=== PATIENT | female | born 1945 | race Caucasian/White ===

== ENCOUNTER → 2019-01-29 | Outpatient (CLI) | payer MEDICARE, OTHER | LOC: DL.CLIN 08:00 | DX: I10 Essential (primary) hypertension (principal) | CPT/HCPCS: 99213 ==

== ENCOUNTER 2020-12-28 18:56 | Emergency (ER) | payer MEDICARE, OTHER ==
--- NOTE | 2020-12-28 19:05 | EDM.PDOC ---
ED HPI GENERAL MEDICAL PROBLEM - General Chief Complaint: Chest Pain Stated Complaint: AMBULANCE Time Seen by Provider: 12/28/20 19:05 Source of Information: Reports: Patient, RN, RN Notes Reviewed History Limitations: Reports: No Limitations - History of Present Illness INITIAL COMMENTS - FREE TEXT/NARRATIVE: Patient presents to the ED via EMS with complaints of chest discomfort and pressure. The patient reports the symptoms began abruptly about 45 minutes ago following her evening meal. She denies experiencing discomfort similar to this in the past and does not have a history of heart burn. She additionally denies history of significant cardiac events; she takes Metoprolol ER 25mg daily, Lisinopril 10mg daily, and Furosemide 20mg daily for HTN as well as Simvastatin 20mg daily for hyperlipidemia. She denies recent illness, fever, shaking chills, palpitations, dyspepsia, abdominal pain, nausea, vomiting, and diarrhea. She does to mild shortness of breath. She denies tobacco, alcohol, or recreational use. The patient states she has not taken any medications for these symptoms, but does attest to improvement in chest pressure following the administration of Nitroglycerin en route via EMS. Mid-Sternal Chest Pain Score (Numeric/FACES): 2 - Related Data Allergies Allergy/AdvReac Type Severity Reaction Status Date / Time No Known Allergies Allergy Verified 12/27/18 21:17 Home Meds: Home Meds Fish Oil/[place]-3 Fatty Acids [Fish Oil] 2,400 each PO DAILY 12/23/14 [History] Lutein/Minerals/Vit A,C & E [Ocuvite] 1 tab PO DAILY 12/23/14 [History] Furosemide [Lasix] 1 tab PO DAILY 12/27/18 [History] Lisinopril 15 mg PO DAILY 12/27/18 [History] Simvastatin 20 mg PO DAILY 12/27/18 [History] Aspirin [Adult Low Dose Aspirin EC] 81 mg PO DAILY 05/19/20 [History] Calcium Carbonate/Vitamin D3 [Calcium 500-Vit D3 125 Caplet] 2 tab PO DAILY 05/19/20 [History] Escitalopram Oxalate 10 mg PO DAILY 05/19/20 [History] Past Medical History - Infectious Disease History Infectious Disease History: Reports: Chicken Pox, Measles - Past Surgical History HEENT Surgical History: Reports: Tonsillectomy Female Surgical History: Reports: Section, D&C Social & Family History - Family History Cardiac: Reports: [place] Endocrine/Metabolic: Reports: Diabetes, type II - Caffeine Use Caffeine Use: Reports: Soda ED ROS GENERAL - Review of Systems Review Of Systems: Comprehensive ROS is negative, except as noted in HPI. ED EXAM, GENERAL - Physical Exam Exam: See Below Exam Limited By: No Limitations General Appearance: Alert, No Apparent Distress Eye Exam: Bilateral Eye: EOMI, Normal Inspection, PERRL Throat/Mouth: Normal Inspection, Normal Voice, No Airway Compromise Head: Atraumatic, Normocephalic Neck: Normal Inspection, Supple, Non-Tender, Full Range of Motion Respiratory/Chest: No Respiratory Distress, Lungs Clear, Normal Breath Sounds, No Accessory Muscle Use, Chest Non-Tender Cardiovascular: Normal Peripheral Pulses, Regular Rate, Rhythm, No Gallop, No JVD, No Murmur, No Rub Peripheral Pulses: 2+: Radial (L), Radial (R), Dorsalis Pedis (L), Dorsalis Pedis (R) GI/Abdominal: Normal Bowel Sounds, Soft, Non-Tender, No Distention, No Mass, Pelvis Stable (Female) Exam: Deferred Rectal (Female) Exam: Deferred Back Exam: Normal Inspection, Full Range of Motion Extremities: Normal Range of Motion, Non-Tender, Normal Capillary Refill, Pedal Edema (+2 pitting, bilaterally) Neurological: Alert, Oriented, CN II-XII Intact, Normal Cognition, No Motor/Sensory Deficits Psychiatric: Normal Affect, Normal Mood Skin Exam: Warm, Dry, Intact, Normal Color, No Rash. No: Ecchymosis, Erythema, Mottled, Pallor, Petechiae #1 Interpretation EKG Date: 12/28/20 Time: 19:08 Rhythm: NSR Rate (Beats/Min): 78 [place]: LAD-Left [place] Deviation P-Wave: Present QRS: Normal ST-T: Normal QT: Normal WA/PQ Interval: .178 Comparison: No Change EKG Interpretation Comments: NSR; LAD; Q-wave to III, aVF, V4, V5, and V6 Course - Vital Signs Last Recorded V/S: Last Vital Signs Temp 96.1 F L 12/28/20 19:02 Pulse 88 12/28/20 19:02 Resp 17 12/28/20 19:02 BP 144/67 H 12/28/20 19:02 Pulse Ox 95 12/28/20 19:02 - Orders/Labs/Meds Orders: Active Orders 24 hr Category Date Time Status CULTURE URINE [RM] Stat Lab 12/28/20 21:58 Received Labs: Laboratory Tests 12/28/20 12/28/20 12/28/20 Range/Units 19:13 19:13 19:13 WBC 5.5 (5.0-10.0) 10^3/uL RBC 4.00 L (4.2-5.4) 10^6/uL Hgb 12.4 (12.0-16.0) g/dL Hct 36.6 L (37.0-47.0) % MCV 91.5 (80-100) fL MCH 31.0 (27.0-34.0) pg MCHC 33.9 (33.0-35.0) g/dL Plt Count 233 (150-450) 10^3/uL Neut % (Auto) 66.7 (42.2-75.2) % Lymph % (Auto) 18.3 L (20.5-50.1) % [place] % (Auto) 11.2 H (2-8) % Eos % (Auto) 3.6 H (1.0-3.0) % Baso % (Auto) 0.2 (0.0-1.0) % Sodium 142 (136-145) mmol/L Potassium 3.1 L (3.5-5.1) mmol/L Chloride 103 (98-107) mmol/L Carbon Dioxide 29 (21-32) mmol/L Anion Gap 13.1 H (7-13) mEq/L BUN 13 (7-18) mg/dL Creatinine 1.08 H (0.55-1.02) mg/dL Est Cr Clr Drug Dosing 37.67 mL/min Estimated GFR (MDRD) 49 BUN/Creatinine Ratio 12.0 (No establ ref range) Glucose 145 H (74-99) mg/dL Lactic Acid 1.3 (0.4-2.0) mmol/L Calcium 8.9 (8.5-10.1) mg/dL Magnesium 1.8 (1.8-2.4) mg/dL Total Bilirubin 0.4 (0.2-1.0) mg/dL AST 41 H (15-37) U/L ALT 29 (14-59) U/L Alkaline Phosphatase 58 (46-116) U/L Troponin I < 0.017 (0.000-0.056) ng/mL C-Reactive Protein 0.4 (0.0-0.9) mg/dL B-Natriuretic Peptide 355 H (0-100) pg/ml Total Protein 7.0 (6.4-8.2) g/dL Albumin 3.4 (3.4-5.0) g/dL Globulin 3.6 Albumin/Globulin Ratio 0.9 Amylase 26 (25-115) U/L Lipase 102 (73-393) U/L Urine Color (YELLOW) Urine Appearance (CLEAR) Urine pH (5.0-9.0) Ur Specific Reading (1.005-1.030) Urine Protein (NEGATIVE) Urine Glucose (UA) (NEGATIVE) Urine Ketones (NEGATIVE) Urine Occult Blood (NEGATIVE) Urine Nitrite (NEGATIVE) Urine Bilirubin (NEGATIVE) Urine Urobilinogen (0.2-1.0) mg/dL Ur Leukocyte Esterase (NEGATIVE) Urine RBC /HPF Urine WBC (0-5/HPF) /HPF Ur Epithelial Cells (NOT SEEN) /HPF Amorphous Sediment (NOT SEEN) /HPF Urine Bacteria (0-FEW/HPF) /HPF Urine Mucus (NOT SEEN) /LPF 12/28/20 12/28/20 Range/Units 21:58 23:02 WBC (5.0-10.0) 10^3/uL RBC (4.2-5.4) 10^6/uL Hgb (12.0-16.0) g/dL Hct (37.0-47.0) % MCV (80-100) fL MCH (27.0-34.0) pg MCHC (33.0-35.0) g/dL Plt Count (150-450) 10^3/uL Neut % (Auto) (42.2-75.2) % Lymph % (Auto) (20.5-50.1) % [place] % (Auto) (2-8) % Eos % (Auto) (1.0-3.0) % Baso % (Auto) (0.0-1.0) % Sodium (136-145) mmol/L Potassium (3.5-5.1) mmol/L Chloride (98-107) mmol/L Carbon Dioxide (21-32) mmol/L Anion Gap (7-13) mEq/L BUN (7-18) mg/dL Creatinine (0.55-1.02) mg/dL Est Cr Clr Drug Dosing mL/min Estimated GFR (MDRD) BUN/Creatinine Ratio (No establ ref range) Glucose (74-99) mg/dL Lactic Acid (0.4-2.0) mmol/L Calcium (8.5-10.1) mg/dL Magnesium (1.8-2.4) mg/dL Total Bilirubin (0.2-1.0) mg/dL AST (15-37) U/L ALT (14-59) U/L Alkaline Phosphatase (46-116) U/L Troponin I < 0.017 (0.000-0.056) ng/mL C-Reactive Protein (0.0-0.9) mg/dL B-Natriuretic Peptide (0-100) pg/ml Total Protein (6.4-8.2) g/dL Albumin (3.4-5.0) g/dL Globulin Albumin/Globulin Ratio Amylase (25-115) U/L Lipase (73-393) U/L Urine Color Light yellow (YELLOW) Urine Appearance Slightly cloudy (CLEAR) Urine pH 6.0 (5.0-9.0) Ur Specific Reading 1.020 (1.005-1.030) Urine Protein Negative (NEGATIVE) Urine Glucose (UA) Negative (NEGATIVE) Urine Ketones Negative (NEGATIVE) Urine Occult Blood Small H (NEGATIVE) Urine Nitrite Negative (NEGATIVE) Urine Bilirubin Negative (NEGATIVE) Urine Urobilinogen 0.2 (0.2-1.0) mg/dL Ur Leukocyte Esterase Trace H (NEGATIVE) Urine RBC 5-10 H /HPF Urine WBC 0-5 (0-5/HPF) /HPF Ur Epithelial Cells Rare (NOT SEEN) /HPF Amorphous Sediment Rare (NOT SEEN) /HPF Urine Bacteria Few (0-FEW/HPF) /HPF Urine Mucus Rare (NOT SEEN) /LPF Meds: Medications Discontinued Medications Generic Name Dose Route Start Last Admin Trade Name Freq PRN Reason Stop Dose Admin Furosemide 40 mg 12/28/20 20:29 12/28/20 20:45 Lasix IVPUSH 12/28/20 20:30 40 mg NOW ONE Administration Potassium Chloride 20 meq/ 100 mls @ 50 mls/hr 12/28/20 20:28 12/28/20 21:02 Premix IV 12/28/20 22:27 25 mls/hr ONETIME ONE Infusion Lidocaine HCl 1 ml 12/28/20 20:28 12/28/20 20:48 Xylocaine-Mpf 1% INJECT 12/28/20 20:29 1 ml ONETIME ONE Administration - Radiology Interpretation Free Text/Narrative:: [facility] Final Radiology Report Call: [phone] assistance Online chat: [email or web address] Name: ANTONINA STEELE Age: 75Years F Date: 12/28/2020 SSN: -- : [id number] Study: CR CHEST 1V FRONTAL Requesting Physician: Rossi Reid Images: 1 Addl Studies: Provided Clinical History: Chest pain Contrast: Contrast Medium: Contrast Amount: Contrast Method: CONFIDENTIALITY STATEMENT This report is intended only for use by the referring physician, and only in accordance with law. If you received this in error, call [phone]. Page 1 of 1 PROCEDURE INFORMATION: Exam: XR Chest Exam date and time: 12/28/2020 8:12 PM Age: 75 years old Clinical indication: Chest pain TECHNIQUE: Imaging protocol: XR of the chest Views: 1 view. COMPARISON: CR Chest 2V 04/27/2020 4:15 PM FINDINGS: Lungs: Unremarkable. No consolidation. Pleural spaces: Unremarkable. No pleural effusion. No pneumothorax. Heart/Mediastinum: Unremarkable. No cardiomegaly. Bones/joints: Unremarkable. IMPRESSION: No acute findings. Thank you for allowing us to participate in the care of your patient. Dictated and Authenticated by: Noble Dooley MD 12/28/2020 8:35 PM Central Time ([place] & [place]) - Re-Assessments/Exams Free Text/Narrative Re-Assessment/Exam: 12/28/20 EKG remarkable for Q-wave in anterior and lateral leads, III, aVF, aVR, V4, V5, and V6. Troponin WNL. BNP elevated at 355, patient states she has been taking her lasix, as prescribed. Pulmonary edema appreciated on CXR. Given physical exam and CXR, will administer Lasix 40mg for fluid overload. Will also administer KCl 20mEq given K of 3.1 on CMP. CBC unremarkable for acute processes, no indication of anemia or infection. Will repeat Troponin following administration of KCl. Findings of imaging, lab work, and exam discussed with patient. She verbalized understanding and agreement with the plan of care. Recheck of Troponin remains WNL. Patient reports improved work of breathing. Will discharge patient home with prescription for three additional doses of Lasix to take in the AM with instructions to follow up with PCP in one to two days. Red flag signs and symptoms which would warrant reevaluation discussed. Patient verbalized understanding and agreement with the plan of care. Departure - Departure Time of Disposition: 00:20 Disposition: Home, Self-Care 01 Condition: Good Clinical Impression: Atypical chest pain, Hypokalemia Congestive heart disease Qualifiers: Heart failure type: unspecified Heart failure chronicity: acute Qualified Code(s): I50.9 - Heart failure, unspecified Instructions: Hypokalemia, Nonspecific Chest Pain, Adult Referrals: Caitlyn Khoury PA-C [Ordering Only Provider] - Forms: ED Department Discharge Additional Instructions: Rx: Furosemide 1.) Follow up with your primary care provider in one to two days regarding today's appointment, including fluid overload and low potassium. 2.) Take one additional Furosemide tablet in the morning for the next three days, or until you are examined by your primary care provider. 3.) Return to the emergency department with any fever, shaking chills, persistent chest pain, shortness of breath, or significant lower leg swelling. Sepsis Event Note (ED) - Focused Exam Vital Signs: Vital Signs Temp Pulse Resp BP Pulse Ox 12/28/20 19:02 96.1 F L 88 17 144/67 H 95 - My Orders Last 24 Hours: My Active Orders 12/28/20 21:58 CULTURE URINE [RM] Stat - Assessment/Plan Last 24 Hours: My Active Orders 12/28/20 21:58 CULTURE URINE [RM] Stat
[2020-12-28 19:53] LABS: ANION GAP 13.1 mEq/L (7-13); CHLORIDE,CL 103 mmol/L (98-107); SODIUM,NA 142 mmol/L (136-145)
[2020-12-28] MEDS ORDERED: Potassium Chloride 20 MEQ in Premix Bag 1 BAG IV ONE (20:28)
[2020-12-28] MEDS ORDERED: Lidocaine 1% 30 ML SDV INJECT ONE (20:28)
[2020-12-28] MEDS ORDERED: Furosemide 40 MG/4 ML VIAL IVPUSH ONE (20:29)
--- NOTE | 2020-12-28 20:35 | CR ---
PROCEDURE INFORMATION: Exam: XR Chest Exam date and time: 12/28/2020 8:12 PM Age: 75 years old Clinical indication: Chest pain TECHNIQUE: Imaging protocol: XR of the chest Views: 1 view. COMPARISON: CR Chest 2V 04/27/2020 4:15 PM FINDINGS: Lungs: Unremarkable. No consolidation. Pleural spaces: Unremarkable. No pleural effusion. No pneumothorax. Heart/Mediastinum: Unremarkable. No cardiomegaly. Bones/joints: Unremarkable. IMPRESSION: No acute findings.
== END 2020-12-29 00:21 | disposition home or self-care (01) ==
LOC: DL.ED 18:56
DX: I11.0 Hypertensive heart disease with heart failure (principal); I50.9 Heart failure, unspecified; E87.6 Hypokalemia; E78.5 Hyperlipidemia, unspecified; Z79.82 Long term (current) use of aspirin; Z79.899 Other long term (current) drug therapy
CPT/HCPCS: 36415; 71045; 80053; 81001; 82150; 83605; 83690; 83735; 83880; 84484; 85025; 86140; 87086; 93005; 93010; 96365; 96366; 96375; 99284; 99285; J1940; J3480